=== PATIENT | male | born 1980 | race Caucasian/White ===

== ENCOUNTER 2016-11-14 22:26 | Emergency (ER) | payer SELFPAY ==
[~2016-11-14] VITALS: Ht 167.6 cm; Wt 92.5 kg
[2016-11-14 22:31] VITALS: Ht 167.6 cm; Wt 92.5 kg
== END 2016-11-15 01:23 | disposition left against medical advice (07) ==
LOC: FTE 22:26
DX: Z53.21 Procedure and treatment not carried out due to patient leaving prior to being seen by health care provider (principal)